=== PATIENT | male | born 2000 | race Caucasian/White ===

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

== ENCOUNTER → 2020-12-01 | Outpatient (CLI) | payer OTHER ==
--- NOTE | 2020-12-01 12:50 | REP ---
INDICATION: PAIN IN RIGHT KNEE. COMPARISON: None. TECHNIQUE: Five views of the right knee. FINDINGS: Five views of the right knee demonstrate normal bones, joints, and soft tissues. No fracture or subluxation is seen. No opaque foreign body noted. IMPRESSION: Negative right knee series. <Electronically signed by Irving Bermudez > 12/01/20 [id number]
== END ==
LOC: M RAD 08:18
PROVIDERS: ATTEND Nurse Practitioner Adult Health
DX: M25.561 Pain in right knee (principal)

== ENCOUNTER → 2021-03-17 | Outpatient (REF) | LOC: M LABSMTC 12:44 | PROVIDERS: ATTEND Pediatrics | DX: Z11.52 Encounter for screening for COVID-19 (principal) ==

== ENCOUNTER → 2021-10-04 | Outpatient (REF) | LOC: M EMP 11:26 | PROVIDERS: ATTEND Family Medicine | DX: Z11.52 Encounter for screening for COVID-19 (principal) ==

== ENCOUNTER → 2022-04-01 | Outpatient (REF) | LOC: M EMP 10:53 | PROVIDERS: ATTEND Family Medicine | DX: Z20.822 Contact with and (suspected) exposure to COVID-19 (principal) ==

== ENCOUNTER 2023-05-30 17:41 | Emergency (ER) | payer OTHER ==
[~2023-05-30] VITALS: Ht 177.8 cm; Wt 64.2 kg
[2023-05-30] MEDS ORDERED: ONDA4TAB6 PO (22:06)
[2023-05-30 22:39] VITALS: BP 123/76; TEMP 98.5; O2SAT 96
== END 2023-05-30 22:42 | disposition home or self-care (01) ==
LOC: M ED 17:41
DX: J02.9 Acute pharyngitis, unspecified (principal); R11.2 Nausea with vomiting, unspecified; G43.909 Migraine, unspecified, not intractable, without status migrainosus; Z79.83 Long term (current) use of bisphosphonates; Z79.890 Hormone replacement therapy